=== PATIENT | female | born 1955 | race Caucasian/White ===

== ENCOUNTER 2016-11-13 12:55 | Outpatient (CLI) | payer MEDICARE | END 2016-11-13 12:56 | disposition home or self-care (01) | LOC: NC 12:55 | PROVIDERS: ATTEND Family Medicine | DX: E11.42 Type 2 diabetes mellitus with diabetic polyneuropathy (principal); Z71.3 Dietary counseling and surveillance; Z79.4 Long term (current) use of insulin ==

== ENCOUNTER 2016-11-20 13:12 | Outpatient (CLI) | payer MEDICARE | END 2016-11-20 13:13 | disposition home or self-care (01) | LOC: NC 13:12 | PROVIDERS: ATTEND Family Medicine | DX: E11.42 Type 2 diabetes mellitus with diabetic polyneuropathy (principal); Z71.3 Dietary counseling and surveillance; Z79.1 Long term (current) use of non-steroidal anti-inflammatories (NSAID) ==

== ENCOUNTER 2016-12-10 08:50 | Outpatient (CLI) | payer MEDICARE | END 2016-12-10 08:51 | disposition home or self-care (01) | LOC: NC 08:50 | PROVIDERS: ATTEND Family Medicine | DX: E11.8 Type 2 diabetes mellitus with unspecified complications (principal) ==